=== PATIENT | male | born 2000 | race Hispanic/Latino ===

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

== ENCOUNTER 2024-09-03 21:05 | Emergency (ER) | payer SELFPAY ==
[~2024-09-03] VITALS: Ht 188 cm; Wt 86.2 kg
[2024-09-03 21:11] VITALS: BP 139/75; PULSE 116; RESP 20; TEMP 100.8; O2SAT 99
[2024-09-03 21:39] VITALS: TEMP 100.8
[2024-09-03] MEDS: guaiFENesin-coDEINE 5 ML SYRUP PO ONE (21:39)
[2024-09-03] MEDS: acetaMINOPHEN 500 MG TABLET PO ONE (21:39)
--- NOTE | 2024-09-03 21:42 | ERN ---
ED Note History of Present Illness Stated Complaint: FEVER, BODY ACHES, STUFFY NOSE, COUGH Chief Complaint: Fever Time Seen by MD: 21:09 Time Seen by Midlevel: 21:09 Dictation: The patient is a 24-year-old male with a history of asthma who presents to the emergency department with complaints of fever, body aches, productive cough onset today. Patient denies any shortness of breath or any other injuries. Allergies: Coded Allergies: brompheniramine (Unverified Allergy, Mild, 09/03/24) SYNCOPE phenylephrine (Unverified Allergy, Mild, 09/03/24) SYNCOPE pseudoephedrine (Unverified Allergy, Mild, 09/03/24) SYNCOPE Past Medical History Past Medical History: Asthma Surgical History: Tonsillectomy RN Note Reviewed/Agreed w/PFSH: Yes Review of System Dictation Constitutional: Negative for weight loss positive for body aches, chills Eyes: Negative for injury, pain,redness, and discharge ENT: Negative for injury,pain or swelling positive for sore throat Cardiovascular: Negative for chest pain, palpitations, and edema Respiratory: Negative for shortness of breath, and wheezing, positive for cough Abdomen/GI: Negative for abdominal pain, nausea, vomiting, diarrhea, and constipation Back: Negative for injury and pain : Negative for injury, bleeding and discharge MS/Extremity: Negative for injury and deformity Skin: Negative for rash, and discoloration Neuro: Negative for headache, weakness, numbness, tingling, and seizure Psych: Negative for suicide ideation, homicidal ideation, and hallucinations Initial Vital Sign VS Vital Signs Date Time Temp Pulse Resp B/P (MAP) Pulse Ox O2 Delivery O2 Flow Rate FiO2 09/03/24 21:11 100.8 116 20 139/75 99 Room Air* 0 21 Physical Exam Dictation Vital Signs reviewed General Appearance: Alert, oriented x 3, no acute distress, well developed, nourished. Head and Face: non-traumatic. Eyes: PERRL, pink conjunctivas, eyelid no trauma, anterior chamber with arcus senilis. Ears: Pinnas intact and no signs of trauma or erythema ear canals clear and no discharge TM no erythema Nose: No discharge, no bleeding. Oropharynx: Mouth normal, tongue pink. pharynx clear,no erythema, tonsils no exudates, no abscesses noted, mucous membrane moist Neck: Supple, non-tender, no thyromegaly, no masses, no JVD, no bruits Breast:Deferred Chest:No tenderness, no crepitus, no paradoxical movement, no retractions Lungs:Clear, well-ventilated, symmetric, no rales, no wheezing, no rhonchi, no stridor, good breath sounds bilaterally Heart: Regular rate, regular rhythm, no murmur, no gallops Vascular: no peripheral edema, Abdomen: Soft, positive bowel sounds, nondistended, no guarding, nontender, no rebound, no masses no hepatomegaly, no splenomegaly, no Chowdhury's sign, no hernias. Rectal: Deferred Genital: Deferred Neurological: Normal speech, motor function intact, sensory function intact Musculoskeletal: Neck nontender, full range of motion, back nontender, full range of motion, Extremities: nontender, full range of motion Skin: Color pink, dry, no turgor, no rash, no lacerations, no abrasions, no contusions. Lymphatic: Deferred Results (Laboratory/Radiology) Laboratory/Radiology Laboratory Tests Test 09/03/24 21:17 Influenza Type A Antigen Negative For Type A Influenza Type B Antigen Negative For Type B SARS-CoV-2, RNA, NAAT POSITIVE SARS CoV-2 Group A Streptococcus Rapid negative (NEGATIVE) Labs Reviewed?: Yes ED Course ED Course Orders Procedure Category Date Status Time Influenza Type A & B, LAB 09/03/24 Complete Rapid 21:15 Rapid (Group A Strep) LAB 09/03/24 Complete 21:15 Covid Rna Naat LAB 09/03/24 Complete 21:15 Acetaminophen 500mg PHA 09/03/24 Complete Tab (Tylenol 500mg T 21:30 Guaifenesin-Codeine PHA 09/03/24 Complete Syrup 5ml (Robitussi 21:30 Chest 1vw RAD 09/03/24 Taken 21:23 Current Medications Medications (Trade) Dose Ordered Sig/Fantasma Route PRN Reason Start Time Stop Time Status Last Admin Dose Admin Acetaminophen (TYLenol 500MG TAB) 1,000 mg ONCE ONCE PO 09/03/24 21:30 09/03/24 21:31 DC 09/03/24 21:39 Guaifenesin/ Codeine Phosphate (RobiTUSSin AC 5 ML SYRUP) 10 ml ONCE ONCE PO 09/03/24 21:30 09/03/24 21:31 DC 09/03/24 21:39 Vital Signs Date Time Temp Pulse Resp B/P (MAP) Pulse Ox O2 Delivery O2 Flow Rate FiO2 09/03/24 21:39 100.8 09/03/24 21:11 100.8 116 20 139/75 96 Room Air 0 09/03/24 21:11 100.8 116 20 139/75 99 Room Air* 0 21 Medical Decision Making MDM The patient is a 24-year-old male with a history of asthma who presents to the emergency department with complaints of fever, body aches, productive cough onset today. Patient denies any shortness of breath or any other injuries. Serology tested Positive for COVID. X-ray showed no acute consolidation. On physical exam patient is in no acute distress, clear lung sounds. Patient instructed to follow up with PCP. Differential diagnosis: URI, pneumonia, strep throat Need for hospitalization: Patient does not meet criteria for hospitalization. There are no social concerns with this patient. DX & DISP Disposition: Discharge Departure Impression: Primary Impression: COVID-19 virus infection Condition: Stable Additional Instructions: Please follow up with your primary doctor in 1-2 days. If anything worsens please return to ER. You may take Tylenol or ibuprofen as needed for the fevers. FOLLOW-UP WITH PRIMARY CARE PROVIDER IN 1 TO 2 DAYS. TAKE MEDICATIONS DIRECTED HERE IN THE EMERGENCY ROOM. OKAY TO CONTINUE HOME MEDICATIONS UNLESS OTHERWISE DISCUSSED DURING YOUR VISIT IN THE EMERGENCY ROOM TODAY. RETURN TO YOUR NEAREST EMERGENCY ROOM IF SYMPTOMS WORSEN OR IF THERE IS NO IMPROVEMENT. CALL 911 IF YOU NEED IMMEDIATE ASSISTANCE. TAKE TYLENOL [id number] NEEDED AND IF NO CONTRAINDICATIONS ARE PRESENT. INCREASE ORAL HYDRATION. A WOUND CULTURE OR URINE CULTURE WAS ORDERED HERE IN THE EMERGENCY ROOM DEPARTMENT PLEASE FOLLOW-UP WITH PRIMARY CARE PROVIDER AND ADVISE THEM TO GET REPEAT PORTS FROM OUR FACILITY. IF YOU HAD ANY ESVIN WRAP/SPLINTS THAT WERE APPLIED HERE, PLEASE DO NOT REMOVE THEM UNTIL YOU SEE YOUR PRIMARY CARE OR SPECIALTY. Referrals: SELF,REFERRAL (PCP) Time of Disposition: 22:25 I have reviewed the case, and I agree with, Diagnosis and Plan MIGUELANGEL PATEL Sep 03, 2024 21:42
[2024-09-03 21:57] LABS: RAPID GROUP A STREP negative (NEGATIVE)
[2024-09-03 22:01] LABS: SARS-CoV-2, RNA, NAAT POSITIVE SARS CoV-2 (NEGATIVE)
[2024-09-03 22:05] LABS: INFLUENZA TYPE A Negative For Type A (NEGATIVE); INFLUENZA TYPE B Negative For Type B (NEGATIVE)
--- NOTE | 2024-09-03 22:55 | HMCIMG ---
EXAM: CR Chest, 1 views. CLINICAL HISTORY: Cough. COMPARISON: None provided. FINDINGS: The lungs show no infiltrate or other acute findings. No pleural effusion or pneumothorax. The cardiomediastinal silhouette is within normal limits. No acute osseous abnormality. IMPRESSION: No acute cardiopulmonary pathology is evident. /[place]
== END 2024-09-03 22:33 | disposition home or self-care (01) ==
LOC: EDH 21:05
DX: U07.1 COVID-19 (principal); J45.909 Unspecified asthma, uncomplicated; Z90.89 Acquired absence of other organs
CPT/HCPCS: 71045; 87635; 87804; 87880; 99284